=== PATIENT | female | born 1995 | race Caucasian/White ===

== ENCOUNTER 2022-12-30 15:23 | Emergency (ER) | payer SELFPAY ==
[2022-12-30 15:41] VITALS: BP 129/86; PULSE 78; RESP 16; TEMP 36.9; O2SAT 99; BMI 24.0
[2022-12-30 17:24] VITALS: BP 133/88; PULSE 74; RESP 18; O2SAT 98
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
== END 2022-12-30 18:40 | disposition home or self-care (01) ==
PROVIDERS: Emergency Provider Emergency Medicine
DX: R23.3 Spontaneous ecchymoses (principal); M54.2 Cervicalgia; M54.9 Dorsalgia, unspecified
CPT/HCPCS: 72100; 73502; 99283; 99284